=== PATIENT | female | born 1970 | race Caucasian/White ===

== ENCOUNTER 2018-05-01 13:05 | Inpatient (IN) | payer MEDICAID ==
[~2018-05-01] VITALS: Ht 144.8 cm; Wt 77.3 kg
[2018-05-01 13:25] VITALS: Ht 144.8 cm; Wt 77.3 kg
[2018-05-01 14:31] LABS: BASOPHIL % 0.2 % (0-2); PLATELET COUNT 306 x10^3mcL (130-400); RED CELL DISTRIBUTION WIDTH 12.9 % (11.5-14.5)
[2018-05-01 14:41] LABS: CALCIUM 8.3 mg/dL (8.5-10.1); CHLORIDE SERUM 102 mmol/L (98-107); CREATININE SERUM 0.7 mg/dL (0.6-1.0); GFR1 > 60 mL/min; GLUCOSE SERUM 93 mg/dL (74-106); POTASSIUM SERUM 3.7 mmol/L (3.5-5.1); SODIUM SERUM 136 mmol/L (136-145)
[2018-05-01 14:52] LABS: ALBUMIN 3.4 g/dL (3.4-5.0); ALKALINE PHOSPHATASE 84 U/L (46-116); ALT/SGPT 50 U/L (14-59); AMYLASE 36 U/L (25-115); AST/SGOT 29 U/L (15-37); BILIRUBIN TOTAL 0.3 mg/dL (0.20-1.00); CHOLESTEROL 153 mg/dL (<200); HDL CHOLESTEROL 60 mg/dL (40-60); LIPASE 101 IU/L (73-393); MAGNESIUM 2.3 mg/dL (1.8-2.4); T4(THYROXINE) 10.1 ug/dL (4.7-13.3)
[2018-05-01 15:21] LABS: UA SPECIFIC GRAVITY <=1.005 (1.005-1.035); microscopic required? YES; urine erythrocyte TRACE (NEGATIVE)
[2018-05-01 15:30] LABS: AMPHETAMINE QUAL UR NONE DETECTED (See below)
[2018-05-01 16:05] LABS: CHOLESTEROL/HDL RATIO 2.7
[2018-05-01] MEDS ORDERED: ENALAPRIL MALE2.5 MG (18:39)
[2018-05-01] MEDS ORDERED: ADV200 PO (18:39)
[2018-05-01 19:13] VITALS: BP 116/56
[2018-05-01 21:29] VITALS: BP 107/47
[2018-05-02 06:32] VITALS: BP 112/48
[2018-05-02 06:52] LABS: BASOPHIL % 0.2 % (0-2); PLATELET COUNT 274 x10^3mcL (130-400); RED CELL DISTRIBUTION WIDTH 13.1 % (11.5-14.5)
[2018-05-02 06:55] LABS: CALCIUM 7.9 mg/dL (8.5-10.1); CARBON DIOXIDE 23.3 mmol/L (21-32); CHLORIDE SERUM 107 mmol/L (98-107); CREATININE SERUM 0.6 mg/dL (0.6-1.0); GFR1 > 60 mL/min; GLUCOSE SERUM 99 mg/dL (74-106); POTASSIUM SERUM 4.2 mmol/L (3.5-5.1); SODIUM SERUM 139 mmol/L (136-145)
[2018-05-02 10:19] VITALS: BP 128/60
[2018-05-02] MEDS ORDERED: ASPIR 8181 MG PO (13:50)
[2018-05-02] MEDS ORDERED: LIPI10 PO (13:50)
[2018-05-02 14:05] VITALS: BP 128/60
== END 2018-05-02 14:45 | disposition home or self-care (01) | DRG 48 ==
LOC: ED 13:05 → DU 15:50 → MU 15:50 → DU 18:54 → MU 19:50
PROVIDERS: Emergency Medicine; ADMIT General Practice
DX: G90.8 Other disorders of autonomic nervous system (principal); D72.829 Elevated white blood cell count, unspecified; I10 Essential (primary) hypertension; E66.9 Obesity, unspecified; Z68.37 Body mass index [BMI] 37.0-37.9, adult; Z79.1 Long term (current) use of non-steroidal anti-inflammatories (NSAID)
CPT/HCPCS: 82962; 83880; G0480; J7030; Q0092